=== PATIENT | female | born 1985 | race African-American/Black ===

== ENCOUNTER 2023-06-23 15:07 | Emergency (ER) | payer OTHER ==
[2023-06-23 15:22] VITALS: BP 113/70; PULSE 95; RESP 18; TEMP 98.2; BMI 39.1
[2023-06-23] MEDS ORDERED: ACETAMINOPHEN 500 MG TABLET (FP) PO ONE (16:19)
[2023-06-23] MEDS ORDERED: ACETAMINOPHEN 500 MG TABLET (FP) ONE (16:29)
[2023-06-23] MEDS ORDERED: IBUPROFEN 600 MG TABLET (FP) PO ONE ×2 (18:13→18:21)
[2023-06-23] MEDS ORDERED: SULFAMETHOXAZOLE/TRIMETHOPRIM 800MG/160MG D.S. TABLET PO ONE (18:13)
[2023-06-23] MEDS ORDERED: SULFAMETHOXAZOLE/TRIMETHOPRIM 800MG/160MG D.S. TABLET ONE (18:21)
== END 2023-06-23 18:29 | disposition home or self-care (01) ==
LOC: JERFT 15:07
PROC: 0X9 Anatomical Regions, Upper Extremities, Drainage (ICD-10-PCS; principal; 2023-06-23)
DX: L02.411 Cutaneous abscess of right axilla (principal)
CPT/HCPCS: 76882-TC-RT; 87070; 87186; 87205; 99284-25

== ENCOUNTER 2023-06-27 15:38 | Emergency (ER) | payer OTHER ==
[2023-06-27 16:02] VITALS: BP 100/76; PULSE 76; RESP 18; TEMP 98.4; BMI 34.3
== END 2023-06-27 17:01 | disposition home or self-care (01) ==
LOC: JERFT 15:38
DX: Z48.00 Encounter for change or removal of nonsurgical wound dressing (principal)
CPT/HCPCS: 99282-25